=== PATIENT | female | born 1970 | race Two or more races ===

== ENCOUNTER 2019-12-07 16:11 | Emergency (ER) | payer BC, MEDICAID ==
[2019-12-07] MEDS ORDERED: Fleet's Enema 133ml RECTAL ONE (19:30)
[2019-12-07] MEDS ORDERED: ONDANSETRON ODT4 MG BC (19:55)
[2019-12-07] MEDS ORDERED: FAMOTIDINE20 MG ORAL (19:55)
== END 2019-12-07 20:10 | disposition home or self-care (01) ==
DX: U07.1 COVID-19 (principal); R10.11 Right upper quadrant pain; R11.2 Nausea with vomiting, unspecified; K59.00 Constipation, unspecified; F41.9 Anxiety disorder, unspecified; F32.9 Major depressive disorder, single episode, unspecified; I10 Essential (primary) hypertension
CPT/HCPCS: 36415; 74176; 80053; 81003; 83690; 85025; 96361; 96374; 96375; J2405; J7030; S0028; U0002; Z7502